=== PATIENT | female | born 1990 | race Caucasian/White ===

== ENCOUNTER 2018-04-14 06:52 | Day surgery (SDC) | payer OTHER, SELFPAY ==
[2018-04-12 14:25] VITALS: BMI 26.6
[2018-04-14] VITALS (8 sets, daily range): BP systolic 97–103; BP diastolic 55–72; PULSE 54–106; RESP 10–22; TEMP 36.8–37.1; O2SAT 91–100; BMI 25.9
--- NOTE | 2018-04-14 | PATH_ITS ---
[facility] Accession Number: [id number] . 01 Material submitted: . BILATERAL FALLOPIAN TUBES . 02 Diagnosis: Segments of Bilateral Fallopian Tubes (Sterilization Procedure): No significant pathologic change. [facility]/04/18/2018 . 02 Electronically signed: . Jimbo Douglas MD, Pathologist NPI- [id number] . 01 Gross description: . The specimen is received in a container of formalin, labeled with the patient's name, designated bilateral fallopian tubes. The specimen consists of two segments of fallopian tubes with fimbriated ends. Neither are identified as right or left. The first fallopian tube measures 8 x 0.6 x 0.6 cm. The serosal surface is focally covered with a few thin, delicate fibrous adhesions. There appears to be a lumen present. The tube will be painted with blue ink. The opposite fallopian tube measures 4.8 x 0.6 x 0.6 cm. The serosal surface is pink-stern, smooth, and shiny. A fimbriated end is present. There appears to be a lumen. There are a few thin, delicate, fibrous adhesions near the distal end. RS cassettes A1 and A2 - fallopian tube painted with ink. Cassettes A3 and A4 - opposite fallopian tube. ([id number]) /FRR . 02 Pathologist provided ICD-10: Z30.2 . 02 CPT . 165817 Performed at: 01 [facility] [address] [place] [id number] MD Dimitris Carbajal MD Phone: [phone] Performed at: 02 [facility] [address] [place], [place] [id number] MD Mauricio Coleman MD Phone: [phone]
[2018-04-14] MEDS: LACTATED RINGERS 1,000 ML 42 ML IV (07:20)
[2018-04-14] MEDS: MIDAZOLAM 2 MG/2 ML VIAL IV (07:24)
[2018-04-14] MEDS: BUPIVACAINE 0.5% W/ EPI (PF) 30 ML VIAL INJ (08:41)
--- NOTE | 2018-04-14 08:42 | SUR.OPER ---
PATIENTS ARMS TUCKED & PADDED WITH GEL BILATERALLY
--- NOTE | 2018-04-14 08:44 | SUR.OPER ---
RENETTA G 1 USED &
--- NOTE | 2018-04-14 09:50 | P.OP_ITS ---
Operative Date/Time/Diagnoses - Date of procedure: 04/14/18 Time of procedure: 09:38 Pre-op diagnosis: Undesired fertility Post-op diagnosis: same Procedure: Procedures Operation Date: 04/14/18 07:45 Actual Procedures Side Surgeon p Laparoscopic Salpingectomy Bilateral Andrew Wills MD Anesthesia Type: General Operative Notes Findings: Examination under anesthesia revealed a normal sized anteverted uterus and normal adnexae. Operative findings included a normal sized anteverted uterus, normal tubes and ovaries, normal liver edge and gallbladder, normal anterior and posterior cul-de -sacs, normal ovarian fossae, and endometriosis of the anterior abdominal wall in the right lower quadrant. Closure Type: primary (4 0 Monocryl and Dermabond) Specimen(s): left tube and right tube Estimated blood loss (mL): 10 Blood products transfused: none Procedure in detail: The patient was brought to the operating room and placed in supine position on the operating table. She was given general oral endotracheal anesthesia, placed in low lithotomy stirrups and prepped and draped in the usual sterile fashion. An examination under anesthesia was performed. A time-out was performed. A speculum was placed in the patient's vagina and the cervix grasped with a Hulka tenaculum. Attention was turned to the abdomen where the umbilicus was infiltrated with 8 cc of 0.5% Marcaine and a midline stab incision made in the umbilicus. Veress needle was inserted into the abdominal cavity and its position verified by hanging drop technique. The abdomen was insufflated to 2 L of carbon dioxide. The Veress needle was removed and replaced by the laparoscopic trocar and sleeve with the laparoscope in place allowing direct visualization of entry into the abdomen. The trocar was removed and replaced by the laparoscoped. Bilateral lower quadrant incision sites were chosen lateral to the inferior epigastric vessels. Both sites were infiltrated with 5 cc of 0.5% Marcaine stab incisions were made and 5 mm trocars placed under direct visualization. The right fallopian tube was grasped at its fimbriated end and the Thjose eduardoer Beat Harmonic scalpel was used to remove the tube at the cornua. The tube was removed through the 5 mm trocar. An identical procedure was performed on the left fallopian tube when hemostasis was assured at both fallopian tube sites, attention was turned to the endometriotic implants on the anterior abdominal wall which were coagulated with the thunder beat. The abdomen was then desufflated to the extent possible and instruments removed under direct visualization. The trocar sites were closed with 4 O Monocryl covered with Dermabond, instruments removed from the vagina and the patient was awakened and taken to the recovery room in stable condition. End of dictation thank you very much. Complications: none Post-operative Condition: stable Disposition: PACU Plan for aftercare: Home
== END 2018-04-14 10:15 | disposition home or self-care (01) ==
PROVIDERS: Visit Provider Obstetrics & Gynecology
PROC: 0UT74ZZ Resection of Bilateral Fallopian Tubes, Percutaneous Endoscopic Approach (ICD-10-PCS; CPT 58661; principal; 2018-04-14 07:45)
DX: Z30.2 Encounter for sterilization (principal)
CPT/HCPCS: 58661; 88302; J1100; J1885; J2250; J2405; J2704; J3010